=== PATIENT | female | born 1980 | race Caucasian/White ===

== ENCOUNTER 2024-12-31 15:10 | Emergency (ER) | payer SELFPAY ==
[2024-12-31] MEDS: Diphtheria,Pertussis(Acell),Tetanus Vaccine 0.5 ML Syringe IM ONE (16:32)
[2024-12-31] MEDS: Lidocaine 1% 5 ML VIAL INJECT ONE (16:32)
== END 2024-12-31 17:12 | disposition home or self-care (01) ==
LOC: MW.ED 15:10
DX: S41.032A Puncture wound without foreign body of left shoulder, initial encounter (principal); S41.012A Laceration without foreign body of left shoulder, initial encounter; W54.0XXA Bitten by dog, initial encounter
CPT/HCPCS: 12001; 90471; 90715; 99283; J2003